=== PATIENT | female | born 2000 ===

== ENCOUNTER 2022-10-21 15:15 | Emergency (ER) | payer SELFPAY ==
[2022-10-21 15:17] VITALS: BP 104/77; PULSE 93; RESP 14; TEMP 36.2; O2SAT 98; BMI 21.7
== END 2022-10-21 18:44 | disposition left against medical advice (07) ==
LOC: ED 19:04
DX: Z53.21 Procedure and treatment not carried out due to patient leaving prior to being seen by health care provider (principal)